=== PATIENT | female | born 1975 | race Caucasian/White ===

== ENCOUNTER 2021-03-13 17:42 | Emergency (ER) | payer MEDICAID ==
[2021-03-13] MEDS ORDERED: Famotidine 20 MG Tab PO ONE (18:36)
[2021-03-13] MEDS ORDERED: Ondansetron 4 MG Tab.DIS PO ONE (18:36)
--- NOTE | 2021-03-13 18:55 | EDM.PDOCBH ---
ED HPI GENERAL MEDICAL PROBLEM - General Chief Complaint: Drug or Alcohol Abuse Stated Complaint: MEDICAL VIA [facility] Time Seen by Provider: 03/13/21 18:06 Source of Information: Reports: Patient History Limitations: Reports: No Limitations - History of Present Illness INITIAL COMMENTS - FREE TEXT/NARRATIVE: Patient presents to the ER today via EMS due to being notified of bed av ailabilty at local detox unit. She presented to the ER for required COVID testing, EtOH level, and UDS. She reports that she drinks 1/5th hard liquor every 2-3 days, last drink today reported around 08-0900. She reports currently having tremors, + nausea, + loose stool/diarrhea, and feeling anxious Tob--1-2 cig/day EtOH--1/5th hard liquor every 2-3 days Drugs--marijuana rare occ PMH--Anxiety, Panic Attacks, Depression, GERD Meds--denies, states she's supposed to take but doesn't NKDA - Related Data Allergies Allergy/AdvReac Type Severity Reaction Status Date / Time No Known Allergies Allergy Verified 03/13/21 18:26 Home Meds: Home Meds ClonazePAM [KlonoPIN] 0.5 mg PO BID 03/13/21 [History] Sertraline [Zoloft] 50 mg PO DAILY 03/13/21 [History] Past Medical History Cardiovascular History: Reports: Heart Murmur [employer]PERATOR History: Reports: Musculoskeletal History: Reports: Fracture Neurological History: Reports: Head Trauma, Seizure Psychiatric History: Reports: Anxiety, Depression, Emotional Problems, Suicidal Ideation, Other (See Below) Other Psychiatric History: cutting - Infectious Disease History Infectious Disease History: Reports: Chicken Pox Social & Family History - Tobacco Use Tobacco Use Status *Q: Current Every Day Tobacco User Years of Tobacco use: 15 Packs/Tins Daily: 1 - Caffeine Use Caffeine Use: Reports: Coffee, Tea - Alcohol Use Days Per Week of Alcohol Use: 7 Number of Drinks Per Day: 10 Total Drinks Per Week: 70 Date of Last Drink: 03/13/21 Time of Last Drink: 09:00 - Recreational Drug Use Recreational Drug Use: Yes Drug Use in Last 12 Months: Yes Recreational Drug Type: Reports: Marijuana/Hashish Recreational Drug Use Frequency: Not Used In Over 1 Month - Living Situation & Occupation Living situation: Reports: , with Spouse ED ROS GENERAL - Review of Systems Review Of Systems: See Below Constitutional: Reports: No Symptoms HEENT: Reports: No Symptoms Respiratory: Reports: No Symptoms Cardiovascular: Reports: No Symptoms Endocrine: Reports: No Symptoms GI/Abdominal: Reports: Diarrhea, Nausea. Denies: Vomiting : Reports: No Symptoms Musculoskeletal: Reports: No Symptoms Skin: Reports: No Symptoms Neurological: Reports: Other (tremors) Psychiatric: Reports: Anxiety, Other Hematologic/Lymphatic: Reports: No Symptoms Immunologic: Reports: No Symptoms ED EXAM, BEHAVIORAL HEALTH - Physical Exam Exam: See Below Exam Limited By: No Limitations General Appearance: Alert, Anxious, Mild Distress (secondary to EtOH withdraw, noted to have mild tremors, tearful/anxious especially after blood draw) Eye Exam: Bilateral Eye: EOMI, Normal Inspection, PERRL Ears: Normal External Exam Nose: Normal Inspection Throat/Mouth: Normal Inspection, Normal Oropharynx Head: Atraumatic, Normocephalic Neck: Normal Inspection, Supple, Non-Tender, Full Range of Motion Respiratory/Chest: No Respiratory Distress, Lungs Clear, Normal Breath Sounds, No Accessory Muscle Use Cardiovascular: Normal Peripheral Pulses, Regular Rate, Rhythm, No Edema, No Murmur GI/Abdominal: Normal Bowel Sounds, Soft, Non-Tender (Female) Exam: Deferred Rectal (Female) Exam: Deferred Back Exam: Normal Inspection Extremities: Normal Inspection, Normal Range of Motion, No Pedal Edema, Normal Capillary Refill Neurological: Alert, Normal Mood/Affect, Oriented x 3 Psychiatric: Alert, Normal Cognition, Oriented Skin Exam: Warm, Dry, Intact, Normal color COURSE, BEHAVIORAL HEALTH COMP - Course Vital Signs: Last Vital Signs Temp 96.3 F L 03/13/21 18:20 Pulse 91 03/13/21 18:20 Resp 20 03/13/21 18:20 BP 138/97 H 03/13/21 18:20 Pulse Ox 95 03/13/21 18:20 Orders, Labs, Meds: Laboratory Tests 03/13/21 03/13/21 03/13/21 Range/Units 18:06 18:12 18:41 Urine HCG, Qual Urine Opiates Screen Negative (NEGATIVE) Ur Oxycodone Screen Negative (NEGATIVE) Urine Methadone Screen Negative (NEGATIVE) Ur Propoxyphene Screen Negative (NEGATIVE) Ur Barbiturates Screen Negative (NEGATIVE) Ur Tricyclics Screen Negative (NEGATIVE) Ur Phencyclidine Scrn Negative (NEGATIVE) Ur Amphetamine Screen Negative (NEGATIVE) U Methamphetamines Scrn Negative (NEGATIVE) Urine MDMA Screen Negative (NEGATIVE) U Benzodiazepines Scrn Negative (NEGATIVE) U Cocaine Metab Screen Negative (NEGATIVE) U Marijuana (THC) Screen Negative (NEGATIVE) Ethyl Alcohol < 3 mg/dL Influenza Type A RNA Negative (NEGATIVE) RSV RNA (INAAT) Negative (NEGATIVE) Influenza Type B RNA Negative (NEGATIVE) SARS-CoV-2 RNA (ANA MARIA) Negative (NEGATIVE) 03/13/21 Range/Units 18:41 Urine HCG, Qual Negative Urine Opiates Screen (NEGATIVE) Ur Oxycodone Screen (NEGATIVE) Urine Methadone Screen (NEGATIVE) Ur Propoxyphene Screen (NEGATIVE) Ur Barbiturates Screen (NEGATIVE) Ur Tricyclics Screen (NEGATIVE) Ur Phencyclidine Scrn (NEGATIVE) Ur Amphetamine Screen (NEGATIVE) U Methamphetamines Scrn (NEGATIVE) Urine MDMA Screen (NEGATIVE) U Benzodiazepines Scrn (NEGATIVE) U Cocaine Metab Screen (NEGATIVE) U Marijuana (THC) Screen (NEGATIVE) Ethyl Alcohol mg/dL Influenza Type A RNA (NEGATIVE) RSV RNA (INAAT) (NEGATIVE) Influenza Type B RNA (NEGATIVE) SARS-CoV-2 RNA (ANA MARIA) (NEGATIVE) Medications Discontinued Medications Generic Name Dose Route Start Last Admin Trade Name Freq PRN Reason Stop Dose Admin Famotidine 40 mg 03/13/21 18:36 03/13/21 19:06 Famotidine 20 Mg Tab PO 03/13/21 18:37 40 mg ONETIME ONE Administration Ondansetron HCl 4 mg 03/13/21 18:36 03/13/21 19:06 Ondansetron 4 Mg Tab.Dis PO 03/13/21 18:37 4 mg ONETIME ONE Administration 1857--UDS, HCG and EtOH level all negative; COVID testing is pending at this time Re-Assessment/Re-Exam: 1943--labs have returned, COVID neg; cleared for voluntary admission to alcohol detox at this time Departure - Departure Time of Disposition: 19:45 Disposition: Home, Self-Care 01 Clinical Impression: ETOH abuse - Discharge Information *PRESCRIPTION DRUG MONITORING PROGRAM REVIEWED*: Not Applicable *COPY OF PRESCRIPTION DRUG MONITORING REPORT IN PATIENT RAFAEL: Not Applicable Instructions: Alcohol Use Disorder Referrals: PCP,None [Primary Care Provider] - Forms: ED Department Discharge Additional Instructions: medically cleared for voluntary alcohol detox admission as already arranged Sepsis Event Note (ED) - Evaluation Sepsis Screening Result: No Definite Risk - Focused Exam Vital Signs: Vital Signs Temp Pulse Resp BP Pulse Ox 03/13/21 18:20 96.3 F L 91 20 138/97 H 95
[2021-03-13 19:05] LABS: CORONAVIRUS COVID-19 NAA NEGATIVE (NEGATIVE)
[2021-03-13 19:52] VITALS: BP 131/88; PULSE 88
== END 2021-03-13 20:05 | disposition home or self-care (01) ==
LOC: JP.ED 17:42
DX: F10.239 Alcohol dependence with withdrawal, unspecified (principal); Y90.0 Blood alcohol level of less than 20 mg/100 ml; Z72.0 Tobacco use; Z20.822 Contact with and (suspected) exposure to COVID-19
CPT/HCPCS: 0241U; 36415; 80305; 80307; 81025; 99283; 99284; A9270